=== PATIENT | female | born 1965 | race Caucasian/White ===

== ENCOUNTER 2018-03-30 09:50 | Emergency (ER) | payer OTHER ==
[~2018-03-30] VITALS: Ht 165.1 cm; Wt 163.3 kg
[2018-03-30] MEDS ORDERED: LASIX 20 MG TAB20 MG PO (10:11)
[2018-03-30] MEDS ORDERED: KLOR-CON 1010 MEQ PO (10:12)
[2018-03-30] MEDS ORDERED: PRINIVIL20 M1 PO (10:12)
[2018-03-30 10:42] LABS: INFLUENZA A ANTIGEN None Detected (None Detect); INFLUENZA B ANTIGEN None Detected (None Detect)
[2018-03-30] MEDS ORDERED: LEVAQUIN 500 M500 M2 PO (11:59)
[2018-03-30] MEDS ORDERED: VENTOLIN HFA 1818 GM INH (11:59)
[2018-03-30] MEDS ORDERED: TESSALON PERLE100 MG PO (11:59)
[2018-03-30 12:24] VITALS: BP 148/79
== END 2018-03-30 12:25 | disposition home or self-care (01) ==
LOC: M.ERS 09:50
PROVIDERS: Family Medicine
DX: S92.531A Displaced fracture of distal phalanx of right lesser toe(s), initial encounter for closed fracture (principal); J40 Bronchitis, not specified as acute or chronic; J18.9 Pneumonia, unspecified organism; I10 Essential (primary) hypertension; Z98.890 Other specified postprocedural states; Z90.710 Acquired absence of both cervix and uterus; Z88.6 Allergy status to analgesic agent; X58.XXXA Exposure to other specified factors, initial encounter; Y93.89 Activity, other specified; Y92.89 Other specified places as the place of occurrence of the external cause; Y99.8 Other external cause status